=== PATIENT | male | born 1955 | race Caucasian/White ===

== ENCOUNTER 2018-06-22 16:41 | Emergency (ER) | payer MEDICARE ==
[~2018-06-22] VITALS: Ht 165.1 cm; Wt 63.6 kg
[~2018-06-22 16:41] MED LIST: FAMOTIDINE10 MG PO; LORTAB 7.5/5001 TAB PO; MOTRIN800 MG PO; NO HOME MEDICATIONS; NORCO 325 MG-51 TAB PO; PERCOCET 5/321 UDTAB PO; PRIL40 PO; ULTRAM 50MG TAB50 MG PO; ZOFRAN8 MG PO
[2018-06-22 17:20] LABS: BASO % 0.4 % (0.0-2.0); EOS % 0.3 % (0-4.0); GRAN % 81.9 % (42.2-75.2); HEMATOCRIT 45.2 % (42.0-52.0); HEMOGLOBIN 16.6 g/dl (13.5-18.0); LYMPH # 0.9 (1.2-3.4); LYMPH % 11.5 % (20.0-51.0); MEAN CELL VOLUME 84 fl (80.0-100.0); MEAN CORPUSCULAR HEMOGLOBIN 31 pg (27.0-31.0); MEAN CORPUSCULAR HGB CONC 37 g/dl (33.0-37.0); MEAN PLATELET VOLUME 10.4 fl (7.4-10.4); MONO # 0.4 (0.1-0.6); MONO % 5.8 % (1.7-9.3); PLATELET COUNT 220 K/mm3 (130-400); REDCELL DISTRIBUTION WIDTH-CV 11.9 % (11.5-14.5)
[2018-06-22 17:27] LABS: PROTHROMBIN TIME 10.8 SECONDS (9.7-12.8)
[2018-06-22 17:35] LABS: ALANINE AMINOTRANSFERASE 28 U/L (21-72); ALBUMIN 4.5 gm/dL (3.5-5.0); ALKALINE PHOSPHATASE 90 U/L (50-136); ANION GAP 7 mmol/L (7-16); AST,SGOT 25 U/L (15-37); BILIRUBIN,TOTAL 0.9 mg/dL (0.0-1.0); BLOOD UREA NITROGEN 11 mg/dL (9-20); CALCIUM 9.2 mg/dL (8.4-10.2); CARBON DIOXIDE 28 mmol/L (22-30); CHLORIDE 106 mmol/L (98-107); CREATININE, serum 0.73 mg/dL (0.66-1.25); GLUCOSE 103 mg/dL (74-106); POTASSIUM 3.9 mmol/L (3.4-5.0); SODIUM 141 mmol/L (137-145); TOTAL PROTEIN 7.3 gm/dL (6.4-8.2)
[2018-06-22 17:47] LABS: TROPONIN-I < 0.012 ng/mL (0.000-0.034)
[2018-06-22 18:52] LABS: ACETAMINOPHEN < 10 ug/mL (10-30); SALICYLATE < 1.0 mg/dL
[2018-06-22 19:06] VITALS: TEMP 97.8
[2018-06-22] MEDS ORDERED: ATIVAN 1MG T1 MG/TAB PO (19:33)
[2018-06-22 19:41] VITALS: BP 142/89; PULSE 79
== END 2018-06-22 19:41 | disposition home or self-care (01) ==
LOC: COL.ER 16:41
PROVIDERS: Emergency Medicine
DX: F41.9 Anxiety disorder, unspecified (principal); R07.89 Other chest pain; K21.9 Gastro-esophageal reflux disease without esophagitis; Z85.46 Personal history of malignant neoplasm of prostate
CPT/HCPCS: J2060; J2405; J3010

== ENCOUNTER 2018-08-09 16:41 | Emergency (ER) | payer MEDICARE ==
[~2018-08-09] VITALS: Ht 165.1 cm; Wt 63.2 kg
[~2018-08-09 16:41] MED LIST changes: +ATIVAN 1MG T1 MG/TAB PO
[2018-08-09 16:49] VITALS: TEMP 98.3
[2018-08-09 19:27] VITALS: BP 175/89; PULSE 76
== END 2018-08-09 19:28 | disposition home or self-care (01) ==
LOC: COL.ER 16:41
DX: S61.012A Laceration without foreign body of left thumb without damage to nail, initial encounter (principal); K21.9 Gastro-esophageal reflux disease without esophagitis; Z23 Encounter for immunization; W26.8XXA Contact with other sharp object(s), not elsewhere classified, initial encounter; Y92.009 Unspecified place in unspecified non-institutional (private) residence as the place of occurrence of the external cause
CPT/HCPCS: J3010

== ENCOUNTER 2019-07-02 06:23 | Emergency (ER) | payer MEDICARE ==
[~2019-07-02] VITALS: Ht 170.2 cm; Wt 61.4 kg
[~2019-07-02 06:23] MED LIST changes: +MEDROL 4MG DOSPA4 MG PO; +VOLTAREN 75 DR75 MG PO
[2019-07-02 06:28] VITALS: TEMP 98.1
[2019-07-02 06:52] LABS: COLLECTION METHOD CLEAN CATCH
[2019-07-02 06:58] LABS: PH 7 (5-8); SQUAMOUS EPITHELIAL None Seen /hpf; URINE APPEARANCE Clear; URINE BACTERIA None Seen /hpf; URINE BILIRUBIN Negative (NEGATIVE); URINE BLOOD Negative (NEGATIVE); URINE COLOR Straw; URINE GLUCOSE Negative (NEGATIVE); URINE KETONE Negative (NEGATIVE); URINE LEUKOCYTE ESTERASE Negative (NEGATIVE); URINE NITRATE Negative (NEGATIVE); URINE PROTEIN(semi-quant) Negative (NEGATIVE); URINE RBC 0-2 /hpf; URINE UROBILINOGEN Negative (NEGATIVE)
[2019-07-02 07:09] LABS: TRICYCLIC ANTIDEPRESS URINE NEGATIVE
[2019-07-02 07:16] LABS: BASO % 0.5 % (0.0-2.0); EOS % 0.6 % (0-4.0); GRAN # 4.6 (1.4-6.5); GRAN % 71.3 % (42.2-75.2); HEMATOCRIT 46.8 % (42.0-52.0); HEMOGLOBIN 16.9 g/dl (13.5-18.0); LYMPH # 1.3 (1.2-3.4); LYMPH % 19.6 % (20.0-51.0); MEAN CELL VOLUME 86 fl (80.0-100.0); MEAN CORPUSCULAR HEMOGLOBIN 31 pg (27.0-31.0); MEAN CORPUSCULAR HGB CONC 36 g/dl (33.0-37.0); MEAN PLATELET VOLUME 10.2 fl (7.4-10.4); MONO # 0.5 (0.1-0.6); MONO % 7.8 % (1.7-9.3); PLATELET COUNT 238 K/mm3 (130-400); RED BLOOD COUNT 5.45 M/mm3 (4.20-5.60); REDCELL DISTRIBUTION WIDTH-CV 11.9 % (11.5-14.5)
[2019-07-02 07:29] LABS: ALANINE AMINOTRANSFERASE 14 U/L (21-72); ALBUMIN 4.9 gm/dL (3.5-5.0); ALKALINE PHOSPHATASE 100 U/L (50-136); ANION GAP 9 mmol/L (7-16); AST,SGOT 25 U/L (15-37); BILIRUBIN,TOTAL 1.1 mg/dL (0.0-1.0); BLOOD UREA NITROGEN 11 mg/dL (9-20); CALCIUM 10.1 mg/dL (8.4-10.2); CARBON DIOXIDE 30 mmol/L (22-30); CHLORIDE 100 mmol/L (98-107); CREATININE, serum 0.86 (0.66-1.25); GLUCOSE 104 mg/dL (74-106); POTASSIUM 4.3 mmol/L (3.4-5.0); SODIUM 139 mmol/L (137-145); TOTAL PROTEIN 8.1 gm/dL (6.4-8.2)
[2019-07-02 07:48] LABS: ACETAMINOPHEN < 10 ug/mL (10-30); ALCOHOL(ethanol),MEDICAL < 10 mg/dL; SALICYLATE < 1.0 mg/dL
[2019-07-02 10:13] VITALS: BP 167/77; PULSE 71
== END 2019-07-02 10:13 | disposition home or self-care (01) ==
LOC: COL.ER 06:23
PROVIDERS: Emergency Medicine
DX: F29 Unspecified psychosis not due to a substance or known physiological condition (principal); K21.9 Gastro-esophageal reflux disease without esophagitis; Z88.0 Allergy status to penicillin; Z23 Encounter for immunization; Z85.46 Personal history of malignant neoplasm of prostate

== ENCOUNTER 2020-02-15 16:38 | Emergency (ER) | payer MEDICARE ==
[~2020-02-15] VITALS: Ht 170.2 cm; Wt 61.4 kg
[2020-02-15 16:42] VITALS: BP 151/74; TEMP 98.7
[2020-02-15] MEDS ORDERED: PERCOCET 325 MG1 TA2 PO (17:19)
[2020-02-15 17:37] VITALS: PULSE 78
== END 2020-02-15 17:46 | disposition home or self-care (01) ==
LOC: COL.ER 16:38
DX: S22.32XA Fracture of one rib, left side, initial encounter for closed fracture (principal); S83.8X2A Sprain of other specified parts of left knee, initial encounter; K21.9 Gastro-esophageal reflux disease without esophagitis; Z88.0 Allergy status to penicillin; Z88.2 Allergy status to sulfonamides; Z88.1 Allergy status to other antibiotic agents; Z85.46 Personal history of malignant neoplasm of prostate; Y92.009 Unspecified place in unspecified non-institutional (private) residence as the place of occurrence of the external cause; V03.10XA Pedestrian on foot injured in collision with car, pick-up truck or van in traffic accident, initial encounter

== ENCOUNTER 2021-08-12 17:49 | Emergency (ER) | payer MEDICARE ==
[~2021-08-12] VITALS: Ht 167.6 cm; Wt 63.6 kg
[~2021-08-12 17:49] MED LIST changes: +PERCOCET 325 MG1 TA2 PO
[2021-08-12 18:03] VITALS: TEMP 97.9
[2021-08-12 19:49] VITALS: BP 144/84; PULSE 64
== END 2021-08-12 19:49 | disposition home or self-care (01) ==
LOC: COL.ER 17:49
DX: S01.01XA Laceration without foreign body of scalp, initial encounter (principal); I25.10 Atherosclerotic heart disease of native coronary artery without angina pectoris; W20.8XXA Other cause of strike by thrown, projected or falling object, initial encounter

== ENCOUNTER 2023-12-15 14:17 | Emergency (ER) | payer MEDICARE ==
[~2023-12-15] VITALS: Ht 180.3 cm; Wt 56.4 kg
[2023-12-15] MEDS ORDERED: diphenhydrAMINE 50 MG/ML 1 ML VIAL IV ONE (15:15)
[2023-12-15] MEDS ORDERED: Ondansetron 4 MG/2 ML VIAL IV ONE (15:15)
[2023-12-15] MEDS ORDERED: NS 1,000 ML IV ONE (15:15)
[2023-12-15 15:20] LABS: HEMATOCRIT 48.9 % (42.0-52.0); HEMOGLOBIN 17.4 g/dl (13.5-18.0); MEAN CELL VOLUME 87 fl (80.0-100.0); MEAN CORPUSCULAR HEMOGLOBIN 31 pg (27-31); MEAN CORPUSCULAR HGB CONC 36 g/dl (33.0-37.0); MEAN PLATELET VOLUME 10.7 fl (7.4-10.4); PLATELET COUNT 208 K/mm3 (130-400); RED BLOOD COUNT 5.62 M/mm3 (4.20-5.60); REDCELL DISTRIBUTION WIDTH-CV 12.5 % (11.5-14.5)
[2023-12-15 15:39] LABS: ALBUMIN 4.3 g/dL (3.4-4.8); BILIRUBIN,TOTAL 1.2 mg/dL (0.2-1.2); CALCIUM 9.6 mg/dL (8.4-10.2); CREATININE, serum 0.83 mg/dL (0.72-1.25); TOTAL PROTEIN 7.7 g/dl (6.2-8.1)
[2023-12-15 15:47] LABS: BAND 14 % (0-10); LYMPHOCYTE 1 % (20.0-51.0); NEUTROPHILS 83 % (42.0-75.2); PLATELET ESTIMATE NORMAL (NORMAL)
[2023-12-15] MEDS ORDERED: Iohexol 300 - 100 ML VIAL IV ONE (17:08)
[2023-12-15] MEDS ORDERED: NS 100 ML IV SCH (17:08)
[2023-12-15] MEDS ORDERED: ZOFRAN 4MG T4 MG/TAB PO (18:17)
[2023-12-15 18:25] VITALS: BP 157/87; PULSE 98
[2023-12-16] MEDS ORDERED: ZOFRAN ODT4 MG PO (22:45)
== END 2023-12-15 18:35 | disposition home or self-care (01) ==
LOC: COL.ER 14:17
PROVIDERS: Physician Assistant
DX: K29.70 Gastritis, unspecified, without bleeding (principal); K52.9 Noninfective gastroenteritis and colitis, unspecified; T36.4X5A Adverse effect of tetracyclines, initial encounter; D72.825 Bandemia; Z88.0 Allergy status to penicillin; Z88.2 Allergy status to sulfonamides; Z88.1 Allergy status to other antibiotic agents
CPT/HCPCS: J1200; J2405; J7030; Q9967

== ENCOUNTER 2023-12-16 21:35 | Emergency (ER) | payer MEDICARE ==
[~2023-12-16] VITALS: Ht 162.6 cm; Wt 53.0 kg
[~2023-12-16 21:35] MED LIST changes: +ZOFRAN 4MG T4 MG/TAB PO
[2023-12-16 21:46] VITALS: TEMP 98.1
[2023-12-16 22:14] LABS: BASO % 0.3 % (0.0-2.0); EOS # 0.1 K/mm3 (0.0-0.7); EOS % 0.8 % (0.0-4.0); GRAN # 6.5 K/mm3 (1.4-6.5); GRAN % 81.5 % (42.2-75.2); HEMATOCRIT 44.5 % (42.0-52.0); HEMOGLOBIN 16.2 g/dl (13.5-18.0); LYMPH # 0.6 K/mm3 (1.2-3.4); LYMPH % 7.5 % (20.0-51.0); MEAN CELL VOLUME 86 fl (80.0-100.0); MEAN CORPUSCULAR HEMOGLOBIN 31 pg (27-31); MEAN CORPUSCULAR HGB CONC 36 g/dl (33.0-37.0); MEAN PLATELET VOLUME 10.2 fl (7.4-10.4); MONO # 0.8 K/mm3 (0.1-0.6); MONO % 9.5 % (1.7-9.3); PLATELET COUNT 203 K/mm3 (130-400); REDCELL DISTRIBUTION WIDTH-CV 12.5 % (11.5-14.5)
[2023-12-16 22:36] LABS: ALBUMIN 3.7 g/dL (3.4-4.8); BILIRUBIN,TOTAL 0.7 mg/dL (0.2-1.2); CALCIUM 9.2 mg/dL (8.4-10.2); CREATININE, serum 0.84 mg/dL (0.72-1.25); POTASSIUM 3.3 mEq/L (3.5-4.5); TOTAL PROTEIN 7.1 g/dl (6.2-8.1)
[2023-12-16] MEDS ORDERED: Famotidine 20 MG TAB PO ONE (22:45)
[2023-12-16] MEDS ORDERED: Home Ondansetron ODT 4 MG #2 ODT/PACK PO ONE (22:45)
[2023-12-16] MEDS ORDERED: Mag/Al Hydrox/Simeth Susp 30 ML CUP PO ONE (22:45)
[2023-12-16] MEDS ORDERED: ZOFRAN ODT4 MG PO (22:45)
[2023-12-16 23:06] VITALS: BP 165/94; PULSE 77
== END 2023-12-16 23:08 | disposition home or self-care (01) ==
LOC: COL.ER 21:35
PROVIDERS: Nurse Practitioner Primary Care
DX: K52.9 Noninfective gastroenteritis and colitis, unspecified (principal)